=== PATIENT | female | born 1985 | race Caucasian/White ===

== ENCOUNTER 2019-05-21 20:26 | Inpatient (IN) ==
[2019-05-21] MEDS ORDERED: Tdap (Boostrix) Vaccine 0.5 ML SYRINGE IM ONE (21:15)
[2019-05-21] MEDS ORDERED: Ibuprofen 400 MG TABLET PO STA (21:22)
[2019-05-21 21:45] LABS: Basophils % 0.4 %; Eosinophils # 0.1 K/mcL (0.0-0.6); Eosinophils % 1.6 %; Hematocrit 35.6 % (35.3-44.9); Hemoglobin 11.5 g/dL (11.5-15.4); Immature Granulocytes % 0.2 % (0-4); Lymphocytes # 2.2 K/mcL (0.6-4.6); Lymphocytes % 42.5 %; Mean Corpuscular HGB Conc 32.3 g/dL (31.6-35.5); Mean Corpuscular Hemoglobin 29.2 pg (28.0-33.3); Mean Corpuscular Volume 90.4 fL (83.0-100.0); Mean Platelet Volume 10.4 fL (9.4-12.4); Monocytes # 0.5 K/mcL (0.0-1.3); Monocytes % 9.2 %; Neutrophils # 2.4 K/mcL (1.6-8.9); Platelet Count 190 K/mcL (140-400); Red Blood Count 3.94 M/mcL (3.82-4.97); Segmented Neutrophils % 46.1 %; White Blood Count 5.1 K/mcL (4.3-11.1)
[2019-05-21 22:04] LABS: Acetaminophen < 10 mcg/mL (10-20); BUN/Creatinine Ratio 14 (6-26); Blood Urea Nitrogen 10 mg/dL (6-20); Calcium 8.8 mg/dL (8.6-10.3); Carbon Dioxide 25 mEq/L (23-29); Chloride 108 mEq/L (98-107); Ethanol < 10 mg/dL (Less than 10); Glucose 69 mg/dL (70-105); Osmolality,Calculated 279 (280-300); Platelet Estimate Normal (Normal); Potassium 3.4 mEq/L (3.5-5.1); Salicylate < 2.5 mg/dL (15.0-30.0); Sodium 136 mEq/L (136-145); eGFR For African Americans > 60 (> 60); eGFR For Non-African Americans > 60 (> 60)
[2019-05-21 22:58] LABS: Bilirubin,Urine Negative (Negative); Blood,Urine Large (Negative); Clarity,Urine Cloudy (Clear); Color,Urine Yellow (Yellow); Glucose,Urine (UA) Normal (Normal); Ketones,Urine Trace mg/dL (Negative); Leukocyte Esterase,Urine Small (Negative); Nitrite,Urine Negative (Negative); Protein,Urine Negative (Neg-Trace); Specific Gravity,Urine 1.026 (1.010-1.025); Urobilinogen,Urine Normal (Normal)
[2019-05-21 23:00] LABS: RBC,Urine TNTC per hpf (0-3); Squamous Epithelial Cell,Urine Many per lpf (None-Few)
[2019-05-21 23:08] LABS: Bacteria,Urine Few per hpf (None-Few); Mucus,Urine Moderate per lpf (Few)
[2019-05-21 23:09] LABS: Amphetamine Screen,Urine Negative ng/mL (Cutoff=1000); Barbiturate Screen,Urine Negative ng/mL (Cutoff=200); Benzodiazepines Screen,Urine Negative ng/mL (Cutoff=200); Cannabinoid Screen,Urine Positive ng/mL (Cutoff = 50); Cocaine Screen,Urine Negative ng/mL (Cutoff= 300); Opiate Screen,Urine Negative ng/mL (Cutoff=300); Phencyclidine Screen,Urine Negative ng/mL (Cutoff=25)
[2019-05-22] MEDS ORDERED: *HR* LORazepam 1 MG TABLET PO PRN (00:34)
[2019-05-22] MEDS ORDERED: Mag Hydrox/Al Hydrox/Simeth 30 ML UDC PO PRN (00:34)
[2019-05-22] MEDS ORDERED: *HR* LORazepam 2 MG/ML VIAL IM PRN (00:34)
[2019-05-22] MEDS ORDERED: MOM Conc 10 ML UD.LIQ PO PRN (00:34)
[2019-05-22] MEDS ORDERED: Haloperidol Lactate 5 MG/ML VIAL IM PRN (00:34)
[2019-05-22] MEDS ORDERED: haloperidoL 5 MG TABLET PO PRN (00:34)
[2019-05-22] MEDS: traZODone 50 MG TABLET PO PRN ×2 (01:42→20:44)
[2019-05-22] MEDS: hydrOXYzine pamoate 25 MG CAPSULE PO PRN ×3 (01:42→19:35)
[2019-05-22] MEDS: polyethylene glycoL 3350 17 GM POWD.PACK PO SCH ×2 (12:22→12:52)
[2019-05-22] MEDS: Nicotine 2 MG GUM BC PRN ×2 (12:52→18:25)
[2019-05-22] MEDS: Ibuprofen 400 MG TABLET PO PRN (20:43)
[2019-05-23] MEDS: polyethylene glycoL 3350 17 GM POWD.PACK PO SCH (08:52)
[2019-05-23] MEDS: hydrOXYzine pamoate 25 MG CAPSULE PO PRN ×3 (08:54→20:38)
[2019-05-23] MEDS: Ibuprofen 400 MG TABLET PO PRN ×2 (09:02→17:26)
[2019-05-23] MEDS: Nicotine 2 MG GUM BC PRN ×3 (13:16→19:31)
[2019-05-23] MEDS: traZODone 50 MG TABLET PO PRN (20:38)
[2019-05-24] MEDS: hydrOXYzine pamoate 25 MG CAPSULE PO PRN ×3 (08:26→20:49)
[2019-05-24] MEDS: polyethylene glycoL 3350 17 GM POWD.PACK PO SCH (09:49)
[2019-05-24] MEDS: Nicotine 2 MG GUM BC PRN ×3 (10:31→19:40)
[2019-05-24] MEDS: Ibuprofen 400 MG TABLET PO PRN (12:30)
[2019-05-24] MEDS: traZODone 50 MG TABLET PO PRN (20:49)
[2019-05-25] MEDS: polyethylene glycoL 3350 17 GM POWD.PACK PO SCH (08:21)
[2019-05-25] MEDS: Ibuprofen 400 MG TABLET PO PRN (08:21)
[2019-05-25] MEDS: hydrOXYzine pamoate 25 MG CAPSULE PO PRN ×4 (08:21→20:48)
[2019-05-25] MEDS: Nicotine 2 MG GUM BC PRN ×3 (12:44→20:48)
[2019-05-25] MEDS: traZODone 50 MG TABLET PO SCH (20:48)
[2019-05-26] MEDS: polyethylene glycoL 3350 17 GM POWD.PACK PO SCH (08:18)
[2019-05-26] MEDS: hydrOXYzine pamoate 25 MG CAPSULE PO PRN ×3 (08:20→20:18)
[2019-05-26] MEDS: Nicotine 2 MG GUM BC PRN ×2 (13:37→20:19)
[2019-05-26] MEDS: Ibuprofen 400 MG TABLET PO PRN (16:17)
[2019-05-26] MEDS: traZODone 50 MG TABLET PO SCH (20:19)
[2019-05-27] MEDS: hydrOXYzine pamoate 25 MG CAPSULE PO PRN ×3 (08:39→21:04)
[2019-05-27] MEDS: Nicotine 2 MG GUM BC PRN ×3 (10:31→21:04)
[2019-05-27] MEDS: polyethylene glycoL 3350 17 GM POWD.PACK PO SCH (10:31)
[2019-05-27] MEDS: Ibuprofen 400 MG TABLET PO PRN (21:04)
[2019-05-27] MEDS: traZODone 50 MG TABLET PO SCH (21:04)
[2019-05-28] MEDS: hydrOXYzine pamoate 25 MG CAPSULE PO PRN ×3 (10:23→20:29)
[2019-05-28] MEDS: polyethylene glycoL 3350 17 GM POWD.PACK PO SCH (10:24)
[2019-05-28] MEDS: Nicotine 2 MG GUM BC PRN ×2 (14:24→19:37)
[2019-05-28] MEDS: traZODone 50 MG TABLET PO SCH (20:28)
[2019-05-29] MEDS: polyethylene glycoL 3350 17 GM POWD.PACK PO SCH (09:13)
[2019-05-29] MEDS: hydrOXYzine pamoate 25 MG CAPSULE PO PRN ×2 (09:13→12:56)
[2019-05-29 09:41] VITALS: BP 113/77
[2019-05-29] MEDS: Nicotine 2 MG GUM BC PRN ×2 (10:36→12:56)
== END 2019-05-29 15:20 | disposition home or self-care (01) | DRG 751 ==
LOC: EMEROOARM 20:26 → 1ANU 20:26 → SUATTDRO 05-22 00:28 → 1ANU 05-22 01:00
PROVIDERS: ADMIT Psychiatry & Neurology Forensic Psychiatry; ATTEND Psychiatry & Neurology Psychiatry